=== PATIENT | female | born 1945 | race Caucasian/White ===

== ENCOUNTER → 2021-09-27 | Outpatient (CLI) | payer MEDICARE | LOC: HEART 5 10:41 | DX: Z00.00 Encounter for general adult medical examination without abnormal findings (principal); J30.9 Allergic rhinitis, unspecified; H26.9 Unspecified cataract; E78.00 Pure hypercholesterolemia, unspecified; R09.02 Hypoxemia; M81.0 Age-related osteoporosis without current pathological fracture; Z87.891 Personal history of nicotine dependence | CPT/HCPCS: 94060; 94729 ==